=== PATIENT | male | born 1975 | race Caucasian/White ===

== ENCOUNTER 2019-11-16 22:42 | Emergency (ER) | payer OTHER ==
[2019-11-16 22:54] VITALS: BP 161/99; PULSE 74; RESP 18; TEMP 99.6
[2019-11-16] MEDS ORDERED: KETOROLAC 30 MG/ML 1 ML VIAL IM STA (23:23)
--- NOTE | 2019-11-16 23:26 | ED ---
Extremity Problem HPI - General Source: patient Mode of arrival: ambulatory Limitations: no limitations <Sol Daugherty - Last Filed: 11/17/19 03:58> <Farhad Guerra - Last Filed: 11/17/19 08:53> - General Chief complaint: Extremity Problem,Nontraumatic Stated complaint: Bite on arm Time Seen by Provider: 11/16/19 22:56 - History of Present Illness Initial comments: 44-year-old male presented for left elbow swelling x 1 day. Patient states he has not noted any specific it injury or repetitive trauma having no some redness to the posterior aspect of the left elbow. He states there is no significant swelling however the area is tender to touch. He states he is able to range the left elbow denies any fever or flulike symptoms. Patient states the irritation felt like a bug bite and he thought that that may have been the cause. Denied noting any other insect bites on body or in the are of affected redness. Remaining ROS (-). (Sol Daugherty) - Related Data Previous Rx's Medication Instructions Recorded Cephalexin [Keflex] 500 mg PO Q6HR 7 Days #28 cap 11/16/19 Ibuprofen 600 mg PO Q8H 5 Days #15 tablet 11/16/19 Allergies Allergy/AdvReac Type Severity Reaction Status Date / Time No Known Allergies Allergy Verified 11/16/19 22:53 Review of Systems ROS Other: All systems not noted in ROS Statement are negative. <Sol Daugherty - Last Filed: 11/17/19 03:58> ROS Other: All systems not noted in ROS Statement are negative. <Farhad Guerra - Last Filed: 11/17/19 08:53> ROS Statement: Those systems with pertinent positive or pertinent negative responses have been documented in the HPI. Past Medical History Past Medical History: No Reported History Additional Past Medical History / Comment(s): back pain History of Any Multi-Drug Resistant Organisms: None Reported Past Surgical History: Back Surgery Past Psychological History: No Psychological Hx Reported Smoking Status: Never smoker Past Alcohol Use History: None Reported Past Drug Use History: None Reported <Sol Daugherty - Last Filed: 11/17/19 03:58> General Exam Limitations: no limitations <Sol Daugherty - Last Filed: 11/17/19 03:58> - General Exam Comments Initial Comments: General: The patient is awake and alert, in no distress, and does not appear acutely ill. Eye: +3 mm pupils are equal, round and reactive to light, extra-ocular movements are intact. No nystagmus. There is normal conjunctiva bilaterally. No signs of icterus. Cardiovascular: There is a regular rate and rhythm. No murmur, rub or gallop is appreciated. Respiratory: Lungs are clear to auscultation, respirations are non-labored, breath sounds are equal. No wheezes, stridor, rales, or rhonchi. Musculoskeletal: redness of the olecranon process. No swelling. No circumferential swleling full ROM at the left elbow. Pian to palpation on the olecranon process. No breaks in skin noted. Strength 5/5. Sensation intact. Radial pulses equal bilaterally 2+. Neurological: A&O x 3. CN II-XII intact grossly, There are no obvious motor or sensory deficits. Coordination appears grossly intact. Speech is normal. Skin: Skin is warm and dry and no rashes or lesions are noted. Psychiatric: Cooperative, appropriate mood & affect, normal judgment. (Sol Daugherty) Course Vital Signs 11/16/19 22:51 Temperature 99.6 F Pulse Rate 74 Respiratory 18 Rate Blood Pressure 161/99 O2 Sat by Pulse 99 Oximetry Medical Decision Making <Sol Daugherty - Last Filed: 11/17/19 03:58> <Farhad Guerra - Last Filed: 11/17/19 08:53> - Medical Decision Making 44-year-old male presents today for chief complaint of left elbow redness. Findings consistent BURSITIS. There is no significant swelling does not appear supportive. Patient is afebrile. Well-appearing and does not appear to be septic joint patient is able to range of the joint. Patient evaluated by attending provider who recommends at this time to treat with NSAIDs, ice ,rest. Patient concerned if this is developing infection given keflex RX with return parameters if redness, swelling increases, develops fever/chills--immediate return to ER. Patient agreed plan discharged appearing well (Sol Daugherty) I saw this patient in conjunction with the physician resident care assistant. I performed independent history and physical exam. Agree with case management. (Farhad Guerra) Disposition Is patient prescribed a controlled substance at d/c from ED?: No Time of Disposition: 23:25 <KevinhoracioSol L - Last Filed: 11/17/19 03:58> <Farhad Guerra - Last Filed: 11/17/19 08:53> Clinical Impression: Olecranon bursitis Disposition: HOME SELF-CARE Condition: Good Instructions (If sedation given, give patient instructions): Elbow Bursitis (ED) Additional Instructions: Please use medication as discussed. Please follow-up with OBGYN. Please return to emergency room if the symptoms increase or worsen or for any other concerns. Prescriptions: Ibuprofen 600 mg PO Q8H 5 Days #15 tablet Cephalexin [Keflex] 500 mg PO Q6HR 7 Days #28 cap Referrals: Quang Renee MD [Primary Care Provider] - 1-2 days Gayle Burton DO [Doctor of Osteopathic Medicine] - 1-2 days
[2019-11-16] MEDS ORDERED: CEPHALEXIN 500MG STARTER PACK 4 CAP BTL PO STA (23:31)
== END 2019-11-16 23:57 | disposition home or self-care (01) ==
LOC: EC 22:42
DX: M70.22 Olecranon bursitis, left elbow (principal)
CPT/HCPCS: 99283; 96372; J1885